=== PATIENT | male | born 1980 | race African-American/Black ===

== ENCOUNTER 2016-11-14 15:23 | Emergency (ER) | payer BC, OTHER ==
[~2016-11-14] VITALS: Ht 175.3 cm; Wt 59.0 kg
[2016-11-14] MEDS ORDERED: IBUPROFEN 600 MG TAB PO ONE (17:45)
[2016-11-14] MEDS ORDERED: IBUP600T26 PO (18:32)
[2016-11-14 18:41] VITALS: BP 116/74
--- NOTE | 2016-11-15 10:34 | REP ---
Pain after trauma. COMPARISON: No priors. FINDINGS: Three views of the left shoulder were performed. The acromioclavicular and glenohumeral relationships are within normal limits. There is no acute fracture or destructive osseous lesions. Signed by Jc Porter DO 11/15/2016 11:25 A
== END 2016-11-14 18:43 | disposition home or self-care (01) ==
LOC: M ED 16:36
DX: S46.912A Strain of unspecified muscle, fascia and tendon at shoulder and upper arm level, left arm, initial encounter (principal); X58.XXXA Exposure to other specified factors, initial encounter; Y92.89 Other specified places as the place of occurrence of the external cause; Y93.89 Activity, other specified; Y99.0 Civilian activity done for income or pay

== ENCOUNTER → 2017-08-28 | Outpatient (REF) | payer BC, SELFPAY ==
[~2017-08-28] MED LIST: IBUP-1022 PO
== END ==
LOC: M LAB REF 13:27
PROVIDERS: ATTEND Physician Assistant
DX: R30.0 Dysuria (principal)